=== PATIENT | male | born 1995 | race Caucasian/White ===

== ENCOUNTER 2023-01-14 16:25 | Emergency (ER) | payer OTHER, SELFPAY ==
[2023-01-14 16:30] VITALS: BP 151/76; PULSE 98; RESP 20; TEMP 36.8; O2SAT 99
--- NOTE | 2023-01-14 16:38 | ED.SKABFB ---
HPI - Skin/Abscess/Foreign Bdy General Chief complaint: Skin/Abscess/Foreign Body Stated complaint: Insect Bite/Left Leg Source: patient Mode of arrival: ambulatory Limitations: no limitations History of Present Illness HPI narrative: 27-year-old male presented for complaint of possible insect bite to the left lower leg for 2 days. States it started as a mosquito bite size and appeared to be a pimple. Pt attempted to squeeze it for drainage but did not expel any discharge. Reports it is becoming more swollen and red today, and reports tightness to the site when walking. States after a few steps the tightness improves. Cleansing the site with soap and water. Denies any other lesions. Related Data Allergies Allergy/AdvReac Type Severity Reaction Status Date / Time No Known Allergies Allergy Verified 01/14/23 16:44 Review of Systems Review of Systems: CONSTITUTIONAL: Denies body aches, fever, chills, or sweats. EYES: Denies visual changes, redness, or discharge. ENT: Denies rhinorrhea, congestion CARDIOVASCULAR: Denies chest pain, palpitations, or edema. RESPIRATORY: Denies cough or dyspnea. GASTROINTESTINAL: Denies abdominal pain, nausea, vomiting, or diarrhea. SKIN: reports redness to left lower leg MUSCULOSKELETAL: Denies back pain, joint pain, or myalgia. NEUROLOGIC: Denies headache, numbness, tingling, or weakness. [facility] Past Medical History Medical History (Updated 01/14/23 @ 16:52 by Hannah Rose, DARIAN) No pertinent past medical history Comments At time of signature, I have reviewed and agree with nursing past medical, surgical, social and family history unless otherwise noted. Please see nursing chart for further information. There is no relevant family history pertinent to the presenting complaint Exam Narrative: GENERAL: Well-appearing HEAD: Normocephalic, atraumatic. EYES: conjunctivae clear, and EOMI. ENT: Mucous membranes moist. Oropharynx without edema, erythema or lesions. NECK: Supple. No lymphadenopathy CHEST: Clear to auscultation. HEART: Regular rate and rhythm. SKIN: Warm, dry. Left medial lower leg with 2x2cm diameter erythematous area and surrounding area of erythema of [id number]. Mildly tender. No fluctuance or drainage. NEURO: Alert and oriented x3. Course Course Emergency Course: Patient is aware of diagnosis, understands and agrees to treatment plan. Anticipatory guidance given. Patient agrees to follow-up as directed and is aware of reasons to seek care at the emergency department. Portions of this record may have been created with voice recognition software Level of Care: Express Care Visit Vital Signs Vital signs: Reviewed MDM - Skin/Abscess/Foreign Bdy MDM Narrative Medical decision making narrative: Discussed physical exam findings c/w cellulitis. Advised supportive measures and signs/symptoms to go to the ER. Pt is appropriate for outpt treatment and f/u. Instructed patient to go to nearest ER immediately for any worsening symptoms including but not limited to: fever, spreading redness, pain, dizziness, chest pain, trouble breathing, or any symptoms concerning to the patient. Differential Diagnosis Differential diagnosis: Likely abscess of skin or subcutaneous tissue, urticaria, herpes zoster, cellulitis and contact dermatitis Discharge Plan Discharge Clinical Impression: Cellulitis Qualifiers: Site of cellulitis: extremity Site of cellulitis of extremity: lower extremity Laterality: left Qualified Code(s): L03.116 - Cellulitis of left lower limb Patient Disposition: Home, Self-Care Condition: Stable Instructions: Antibiotic Form, Cellulitis (ED) Additional Instructions: Keep the area clean and dry - cleanse with warm water and mild soap and allow to fully dry. Ok to apply neosporin to the site Warm compresses to the site at least 3 times daily Keep it open to air (no bandages) Take antibiotic as directed Watch for worsening symptoms
== END 2023-01-14 16:51 | disposition home or self-care (01) ==
PROVIDERS: Emergency Provider Nurse Practitioner Family; PCP Family Medicine
DX: L03.116 Cellulitis of left lower limb (principal)
CPT/HCPCS: 99213; G0463

== ENCOUNTER 2023-08-15 01:48 | Emergency (ER) | payer OTHER, SELFPAY ==
[2023-08-15 01:49] VITALS: BP 138/104; PULSE 80; RESP 18; TEMP 36.1; O2SAT 98
--- NOTE | 2023-08-15 02:01 | ED.EAR ---
HPI - Ear Problem General Chief complaint: Ear Stated complaint: ear pain Time Seen by Provider: 08/15/23 01:53 Source: patient Mode of arrival: ambulatory Limitations: no limitations History of Present Illness HPI Narrative: This is a 28-year-old male who presents with left ear pain with some drainage started earlier today with no fever chills no sore throat no nausea vomiting no abdominal pain or chest pain no shortness of breath. There is no nasal congestion no sinus tenderness no swimming history. MD Complaint: ear pain and ear discharge Location: left ear Duration: constant Severity: moderate Relieving factors: nothing Exacerbating factors: nothing Related Data Allergies Allergy/AdvReac Type Severity Reaction Status Date / Time No Known Allergies Allergy Verified 08/15/23 01:53 Review of Systems Review of Systems: All systems reviewed & are unremarkable except as noted in HPI and below PMFSH Past Medical History Medical History No pertinent past medical history Exam Const: General: healthy appearing Nutritional Appearance: well nourished Orientation/consciousness: patient oriented x3 Limitations: no limitations HENMT: Other: Left ear canal erythematous with a erythematous Eyes: Conjunctivae: conjunctivae normal Chest: Chest palpation & inspection: normal inspection of the chest Resp: Effort & Inspection: normal respiratory effort Auscultation: clear to auscultation bilaterally Cardio: Rate: regular rate Rhythm: regular rhythm Course Course Emergency Course: patient with left ear pain received a dose of antibiotic ear drops and Augmentin by mouth. Vital Signs Vital signs: Vital Signs Temperature 36.1 C L 08/15/23 01:49 Pulse Rate 80 08/15/23 01:49 Respiratory Rate 18 08/15/23 01:49 Blood Pressure 138/104 H 08/15/23 01:49 Pulse Oximetry 98 08/15/23 01:49 Oxygen Delivery Room Air 08/15/23 01:49 Temperature 36.1 C L 08/15/23 01:49 Pulse Rate 80 08/15/23 01:49 Respiratory Rate 18 08/15/23 01:49 Blood Pressure 138/104 H 08/15/23 01:49 Pulse Oximetry 98 08/15/23 01:49 Oxygen Delivery Room Air 08/15/23 01:49 Medical Decision Making Vital Signs Vital Signs: Vital Signs Temperature 36.1 C L 08/15/23 01:49 Pulse Rate 80 08/15/23 01:49 Respiratory Rate 18 08/15/23 01:49 Blood Pressure 138/104 H 08/15/23 01:49 Pulse Oximetry 98 08/15/23 01:49 Oxygen Delivery Room Air 08/15/23 01:49 Temperature 36.1 C L 08/15/23 01:49 Pulse Rate 80 08/15/23 01:49 Respiratory Rate 18 08/15/23 01:49 Blood Pressure 138/104 H 08/15/23 01:49 Pulse Oximetry 98 08/15/23 01:49 Oxygen Delivery Room Air 08/15/23 01:49 Critical Care Time Critical Care Time Critical Care Time: No Discharge Plan Discharge Clinical Impression: Otitis externa Qualifiers: Otitis externa type: unspecified type Chronicity: acute Laterality: left Qualified Code(s): H60.502 - Unspecified acute noninfective otitis externa, left ear Patient Disposition: Home, Self-Care Condition: Stable Instructions: Antibiotic Form, Swimmer's Ear (ED) Additional Instructions: advised to take antibiotics as prescribed and follow up with primary if symptoms persist or worsen. Prescriptions: New amoxicillin-pot clavulanate [Augmentin] 500-125 mg tablet 1 tablet PO TID Qty: 30 0RF Cortisporin-TC 3.3-3-10-0.5 mg/mL drops,suspension 5 drp LEFT EAR TID 7 Days Qty: 10 0RF Follow-up/Referrals: Harms,Tomasz Lentz M.D. [Primary Care Provider] - Time of Disposition: 02:06
[2023-08-15] MEDS: NEOMYCIN/POLYMYXIN/HYDROCORT OT SUSP 10 ML BTL (*BKC) 3 DROP LEFT EAR (02:17)
[2023-08-15] MEDS: AMOXICILLIN/CLAVULANATE K 875-125 MG TAB 1 TABLET PO (02:20)
[2023-08-15 02:27] VITALS: BP 127/86
== END 2023-08-15 02:27 | disposition home or self-care (01) ==
PROVIDERS: Emergency Provider Emergency Medicine; PCP Family Medicine
DX: H60.502 Unspecified acute noninfective otitis externa, left ear (principal)
CPT/HCPCS: 99283; A9270